=== PATIENT | female | born 1995 | race African-American/Black ===

== ENCOUNTER 2020-11-14 11:27 | Emergency (ER) | payer MEDICAID ==
[~2020-11-14] VITALS: Ht 165.1 cm; Wt 120.0 kg
[~2020-11-14 11:27] MED LIST: ALBU2.5V13 IH; DIPH25CA83 PO; FERR256T PO
[2020-11-14] MEDS ORDERED: KETOROLAC 30MG/ML VIAL IM ONE (12:15)
[2020-11-14] MEDS ORDERED: SODIUM CHLORIDE 0.9% 1,000 ML IV ONE (12:15)
[2020-11-14] MEDS ORDERED: METOCLOPRAMIDE HCL 10MG/2ML VIAL IV ONE (12:15)
[2020-11-14] MEDS ORDERED: KETOROLAC 30MG/ML VIAL IV ONE (12:15)
[2020-11-14] MEDS ORDERED: DIPHENHYDRAMINE 50MG/ML VIAL IV ONE (12:15)
[2020-11-14] MEDS ORDERED: NAPR-679 MT (14:25)
[2020-11-14 15:39] VITALS: BP 138/70
== END 2020-11-14 15:40 | disposition home or self-care (01) ==
LOC: ER 11:27
DX: R51.9 Headache, unspecified (principal); G40.909 Epilepsy, unspecified, not intractable, without status epilepticus; J45.909 Unspecified asthma, uncomplicated; F12.10 Cannabis abuse, uncomplicated
CPT/HCPCS: 81025; 96361; 96374; 96375; 99284; J1200; J1885; J2765; J7030; Z7610

== ENCOUNTER 2022-05-21 10:11 | Emergency (ER) | payer MEDICAID, OTHER ==
[~2022-05-21] VITALS: Ht 170.2 cm; Wt 109.0 kg
[~2022-05-21 10:11] MED LIST changes: +NAPR-679 MT
[2022-05-21] MEDS ORDERED: LEVETIRACETAM 500MG PREMIX 100 ML IV ONE (10:30)
[2022-05-21 11:08] LABS: BASOPHILS % 0.4 % (0.0-2.0); EOSINOPHILS % 0.3 % (0.0-5.0); HEMATOCRIT. 41.7 % (36.0-48.0); HEMOGLOBIN. 13.9 g/dL (12.0-16.0); MEAN CORPUSCULAR HEMOGLOBIN 26.8 pg (28.0-32.0); MEAN CORPUSCULAR VOLUME 80.1 fL (81.0-99.0); MEAN PLATELET VOLUME 10.1 fl (7.4-10.4); NEUTROPHILS % 80.3 % (40.0-76.0); PLATELET 337 x1000/uL (130-400)
[2022-05-21 11:12] LABS: CLARITY URINE CLEAR (CLEAR); COLOR URINE YELLOW (YELLOW); KETONES URINE 1+ (NEGATIVE); LEUKOCYTE ESTERASE URINE TRACE (NEGATIVE); NITRITE URINE POSITIVE (NEGATIVE); OCCULT BLOOD URINE 1+ (NEGATIVE); PH URINE 5.5 (4.5-8.0); PROTEIN URINE 2+ (NEGATIVE); SPECIFIC GRAVITY URINE 1.021 (1.005-1.030); UROBILINOGEN URINE 0.2 E.U./dL (0.2-1.0)
[2022-05-21 11:18] LABS: CHLORIDE 106 mEq/L (98-107)
[2022-05-21] MEDS ORDERED: POTASSIUM CHLORIDE 20MEQ TABLET SR PO ONE (13:00)
[2022-05-21] MEDS ORDERED: CEPH250C2 MT (14:13)
[2022-05-21] MEDS ORDERED: KEPP500 MT (14:13)
[2022-05-21 14:50] VITALS: BP 150/98
== END 2022-05-21 15:27 | disposition home or self-care (01) ==
LOC: ER 10:11
DX: G40.909 Epilepsy, unspecified, not intractable, without status epilepticus (principal); N39.0 Urinary tract infection, site not specified; E87.6 Hypokalemia; R03.0 Elevated blood-pressure reading, without diagnosis of hypertension; Z91.14 Patient's other noncompliance with medication regimen
CPT/HCPCS: 36415; 80053; 81003; 81025; 85025; 96365; 99284; J1953

== ENCOUNTER 2024-10-29 13:49 | Emergency (ER) | payer MEDICAID ==
[~2024-10-29] VITALS: Ht 172.7 cm; Wt 127.0 kg
[~2024-10-29 13:49] MED LIST changes: +CEPH250C2 MT; +KEPP500 MT
[2024-10-29 13:51] VITALS: TEMP 36.7; O2SAT 98
[2024-10-29] MEDS: LEVETIRACETAM 500MG TABLET PO ONE (14:29)
[2024-10-29 14:58] LABS: HEMATOCRIT. 39.8 % (36.0-48.0); HEMOGLOBIN. 12.9 g/dL (12.0-16.0); MEAN CORPUSCULAR HEMOGLOBIN 25.7 pg (28.0-32.0); MEAN CORPUSCULAR HGB CONC 32.4 g/dL (31.0-37.0); MEAN CORPUSCULAR VOLUME 79.5 fL (81.0-99.0); MEAN PLATELET VOLUME 9.1 fl (7.4-10.4); PLATELET 337 x1000/uL (130-400); RED BLOOD CELL COUNT 5.01 mill/uL (4.2-5.4); RED CELL DISTRIBUTION WIDTH 13.9 % (11.6-14.6); WHITE BLOOD COUNT 11.9 x1000/uL (4.5-11.0)
[2024-10-29 15:01] LABS: DIFFERENTIAL COMMENT 1
[2024-10-29 15:03] LABS: CHLORIDE 106 mEq/L (98-107); POTASSIUM 4.6 mEq/L (3.5-5.1); SODIUM 139 mEq/L (136-145)
[2024-10-29 15:04] LABS: CALCIUM 9.3 mg/dL (8.7-10.4); CARBON DIOXIDE 25 mEq/L (21-32)
[2024-10-29 15:09] LABS: CREATININE 0.7 mg/dL (0.6-1.0); GLUCOSE 122 mg/dL (70-105); UREA NITROGEN BLOOD 9 mg/dL (9-23)
[2024-10-29 15:10] LABS: HCG SCREEN NEGATIVE
[2024-10-29 16:15] VITALS: BP 101/54; PULSE 83; RESP 12; O2SAT 100
[2024-10-29 16:30] LABS: MICROCYTOSIS 1+; PLATELET ESTIMATE NORMAL
== END 2024-10-29 17:13 | disposition home or self-care (01) ==
LOC: ER 13:49
DX: G40.909 Epilepsy, unspecified, not intractable, without status epilepticus (principal); Z79.1 Long term (current) use of non-steroidal anti-inflammatories (NSAID)
CPT/HCPCS: 99283; 80048; 84703; 85025; 36415; A4663; A4606